=== PATIENT | female | born 1985 | race American Indian/Alaskan Native ===

== ENCOUNTER 2016-09-27 06:19 | Day surgery (SDC) | payer MEDICAID ==
--- NOTE | 2016-09-21 11:47 | Anesthesia Consultation ---
Anesthesia Consult and Med Hx Date of service: 09/21/16 - Airway Anesthetic Teeth Evaluation: Good ROM Head & Neck: Adequate Mental/Hyoid Distance: Adequate Mallampati Class: Class II Intubation Access Assessment: Probably Good - Pulmonary Exam CTA: Yes - Cardiac Exam Cardiac Exam: RRR - Pre-Operative Health Status ASA Pre-Surgery Classification: ASA2 Proposed Anesthetic Plan: General - Pulmonary Hx Smoking: Yes (occ. marijuana use) Hx Asthma: No Hx Respiratory Symptoms: No SOB: No COPD: No Hx Pneumonia: No Hx Sleep Apnea: No - Cardiovascular System Hx Hypertension: Yes (x 2 yrs) - Central Nervous System Hx Neuromuscular Disorder: No Hx Seizures: No CVA: No Hx Back Pain: Yes (lower, probably related to pelvic pain) Hx Psychiatric Problems: No - Gastrointestinal Hx Ulcer: No Hx Gastroesophageal Reflux Disease: No - Endocrine Hx Renal Disease: Yes (Patient has one kidney, no problems) Hx End Stage Renal Disease: No Hx Cirrhosis: No Hx Liver Disease: No Hx Insulin Dependent Diabetes: No Hx Non-Insulin Dependent Diabetes: No Hx Thyroid Disease: No Hx Hypothyroidism: No Hx Hyperthyroidism: No - Hematic Hx Anemia: No Hx Sickle Cell Disease: No - Other Systems Hx Alcohol Use: Yes (occas) Hx Substance Use: Yes (occ. marijuana in past) Hx Cancer: No Hx Obesity: Yes
--- NOTE | 2016-09-21 11:47 | Anesthesia Day of Surgery ---
Anesthesia Day of Surgery - Day of Surgery Patient Examined: Yes Patient H&P Reviewed: Yes Patient is NPO: Yes
[2016-09-21 12:28] LABS: Basophils % (Auto) 0.6 % (0.0-1.8); Eosinophils % (Auto) 1.2 % (0.0-4.3); Hematocrit 33.4 % (30.3-42.9); Hemoglobin 10.4 gm/dl (10.1-14.3); Mean Corpuscular HGB Conc 31 % (30-34); Mean Corpuscular Volume 78 fl (79-97); Platelet Count 272 K/mm3 (140-440); Red Cell Distribution Width 17.3 % (13.2-15.2); White Blood Count 8.8 K/mm3 (4.5-11.0)
[2016-09-21 12:38] LABS: Anion Gap 16 mmol/L; BUN/Creatinine Ratio 11.42; Blood Urea Nitrogen 8 mg/dL (7-17); Calcium 8.7 mg/dL (8.4-10.2); Carbon Dioxide 24 mmol/L (22-30); Chloride 102.9 mmol/L (98-107); Glucose 88 mg/dL (65-100); Potassium 3.8 mmol/L (3.6-5.0); Sodium 139 mmol/L (137-145)
[2016-09-21 12:44] LABS: Mean Corpuscular Hemoglobin 24 pg (28-32)
[2016-09-27] MEDS ORDERED: NACL 0.9% 1000 ML 1,000 ML IV SCH (07:00)
[2016-09-27] MEDS ORDERED: TRANSDERM-SCOP TD NR (07:00)
[2016-09-27] MEDS ORDERED: PEPCID PO NR (07:00)
[2016-09-27] MEDS ORDERED: VERSED IV NR (07:00)
[2016-09-27] MEDS ORDERED: ZEMURON IV ONE (07:17)
[2016-09-27] MEDS ORDERED: XYLOCAINE MPF 2% ONE (07:17)
[2016-09-27] MEDS ORDERED: DILAUDID ONE ×2 (07:18→09:05)
[2016-09-27] MEDS ORDERED: DIPRIVAN 10 MG/ML IV ONE (07:18)
--- NOTE | 2016-09-27 07:25 | Short Stay Summary ---
Short Stay Documentation Date of service: 09/27/16 Narrative H&P: 31y/o BF with a prolonged history of chronic pelvic pain and dyspareunia. Patient reports significant pain with her menses. She currently requires prescription narcotics for pain control. - History Principal diagnosis: chronic pelvic pain Past Medical History: hypertension Past Surgical History: Social history: single - Allergies and Medications Current Medications: Allergies No Known Allergies Allergy (Verified 09/21/16 12:05) Home Medications Medication Instructions Recorded Confirmed Last Taken Type HYDROcodone/APAP 10-325 [[place] 1 each PO Q6HR PRN #30 tablet 01/30/14 09/19/16 Unknown Rx 10/325] Hydrochlorothiazide [HCTZ] 25 mg PO QDAY PRN 09/19/16 09/19/16 Unknown History Active Medications Famotidine (Pepcid) 20 mg PO PREOP NR Stop: 09/27/16 23:00 Last Admin: 09/27/16 07:02 Dose: 20 mg Sodium Chloride (Nacl 0.9% 1000 Ml) 1,000 mls @ 100 mls/hr IV DIRECT IVAN Last Admin: 09/27/16 07:05 Dose: 100 mls/hr Midazolam HCl (Versed) 2 mg IV PREOP NR Stop: 09/27/16 23:00 Last Admin: 09/27/16 07:17 Dose: 2 mg Scopolamine (Transderm-Scop) 1 each TD PREOP NR Stop: 09/29/16 23:00 Last Admin: 09/27/16 07:00 Dose: 1 each - Physical exam General appearance: no acute distress Integumentary: no rash HEENT: Atraumatic Lungs: Clear to auscultation Breasts: deferred Heart: Regular rate Gastrointestinal: normal Female Genitourinary: deferred Rectal Exam: deferred - Brief post op/procedure progress note Date of procedure: 09/27/16 Pre-op diagnosis: chronic pelvic pain Post-op diagnosis: same Procedure: Laparoscopy Lysis of adhesions Right ovarian cystotomy Anesthesia: LEOBARDO Surgeon: CAROLINA VALENZUELA Estimated blood loss: minimal Pathology: none Condition: stable - Hospital course Hospital course: The patient was admitted that he is surgery and underwent a laparoscopy. Please see operative note for details of surgery. Her postoperative course was uneventful. - Disposition Condition at discharge: Good Disposition: DC-01 TO HOME OR SELFCARE Short Stay Discharge Plan Activity: other (request for 2 weeks) Diet: regular Additional Instructions: Follow-up with Dr. Ren in 4 weeks Patient may return to work in 2 weeks Prescriptions: Oxycodone HCl/Acetaminophen [Percocet 10/325 mg] 1 each PO Q6HR PRN #60 tablet PRN Reason: Pain traMADol [Ultram 50 MG tab] 50 mg PO Q6HR PRN #30 tablet PRN Reason: Pain
[2016-09-27] MEDS ORDERED: MARCAINE 0.5% INFILTRATI ONE ×2 (07:27→08:15)
[2016-09-27] MEDS ORDERED: DECADRON ONE (08:00)
[2016-09-27] MEDS ORDERED: ZOFRAN ONE (08:00)
[2016-09-27] MEDS ORDERED: NACL 0.9% IR ONE (08:15)
[2016-09-27] MEDS ORDERED: NACL 0.9% 1000 ML 1,000 ML ONE (08:38)
--- NOTE | 2016-09-27 08:46 | Operative Report ---
Operative Report Operative Report: Date of procedure: 09/27/2016 Pre-operative diagnosis: Chronic pelvic pain Post-operative diagnosis: Same as above; pelvic adhesive disease Procedure name(s): Laparoscopy; lysis of adhesions; right ovarian cystotomy Surgeon: Radha Carbone M.D. Pole Framer: None Estimated blood loss: Minimal Anesthesia: Gen. endotracheal anesthesia Findings Operative findings included pelvic adhesive disease of the uterus adherent to the anterior abdominal wall. There were also findings of a small right ovarian cyst with evidence of clear kate fluid. Indication: 31-year-old black female with a history of worsening chronic pelvic pain. The patient has elected for operative management Procedure The patient was taken to the operating room and given general endotracheal anesthesia without complication. The patient was prepped and draped in a normal sterile fashion. A bivalve speculum was placed in the patient's vagina single-tooth tenaculum placed on the anterior lip of the cervix. A uterine manipulator was then placed. The bivalve speculum was then removed. Attention was then turned to the patient's abdomen where a 5 mm infraumbilical skin incision was then made. Peritoneal entry was verified with a water-filled syringe. Insufflation of the peritoneal cavity was performed with CO2 gas. A 5 mm trocar was then placed through the infraumbilical incision and a 5 mm laparoscope was then inserted. General survey of the patient's abdomen and pelvis revealed anterior uterine adhesions to the anterior abdominal wall. The patient also had findings of omental adhesions to the anterior abdominal wall. There were findings of a right ovarian cyst. A left lateral 5 mm skin incision was then made and under direct visualization a 5 mm trocar was then placed. The monopolar scissors were then inserted through the trocar. The anterior uterine adhesions were lysed with the monopolar scissors. There was no evidence of endometriotic implants. The right ovary was elevated and a cystotomy was performed with the monopolar scissors with evacuation of clear fluid. No significant posterior adhesions were noted. The 5 mm trocar was then removed under direct visualization. The pneumoperitoneum was then released. The infraumbilical trocar and laparoscope with them also removed. The skin incisions were then closed with 4-0 Monocryl and injected with quarter percent Marcaine. The vaginal estrogen were removed atraumatically. The patient was then successfully extubated and taken to the recovery room in stable condition. All sponge laps and needle counts were correct 2.
[2016-09-27] MEDS ORDERED: APRESOLINE ONE (09:05)
[2016-09-27] MEDS: DILAUDID IV PRN ×2 (09:10→09:20)
[2016-09-27] MEDS ORDERED: PERCOCET 5/325 ONE (09:40)
[2016-09-27] MEDS ORDERED: APRESOLINE IV PRN (10:00)
[2016-09-27] MEDS ORDERED: PERCOCET 5/325 PO PRN (10:00)
[2016-09-27] MEDS ORDERED: ZOFRAN IV ONE (10:58)
[2016-09-27 12:53] VITALS: BP 131/73
== END 2016-09-27 12:15 | disposition home or self-care (01) ==
LOC: OR 06:19
PROVIDERS: ATTEND Obstetrics & Gynecology
DX: N83.201 Unspecified ovarian cyst, right side (principal); N73.6 Female pelvic peritoneal adhesions (postinfective); I10 Essential (primary) hypertension; F12.21 Cannabis dependence, in remission; E66.9 Obesity, unspecified; Z68.41 Body mass index [BMI] 40.0-44.9, adult; Z98.890 Other specified postprocedural states; Z79.899 Other long term (current) drug therapy; Z87.891 Personal history of nicotine dependence; Z72.89 Other problems related to lifestyle
CPT/HCPCS: 36415; 49322; 80048; 84703; 85025; J0360; J1100; J1170; J2250; J2405; J2704; J7030

== ENCOUNTER 2017-02-12 09:47 | Outpatient (CLI) | payer MEDICAID ==
--- NOTE | 2017-02-12 14:17 | Ultrasound Report ---
ULTRASOUND ABDOMEN LIMITED: 02/12/17 10:04:00 CLINICAL: A ventral hernia. FINDINGS: Ultrasound examination of the anterior abdominal wall demonstrated a 1 cm defect in the midline inferior to the umbilicus. There is a slight bulge of fat through the defect with a Valsalva maneuver. No bowel extends into the defect. IMPRESSION: Infraumbilical midline ventral hernia with a 1 cm fascial defect.
== END 2017-02-12 09:48 | disposition home or self-care (01) ==
LOC: US 09:47
PROVIDERS: ATTEND Obstetrics & Gynecology
DX: K43.9 Ventral hernia without obstruction or gangrene (principal)
CPT/HCPCS: 76705

== ENCOUNTER 2017-04-27 10:12 | Day surgery (SDC) | payer MEDICAID ==
[2017-04-27] MEDS ORDERED: NACL BACTERIOSTATIC INFILTRATI ONE (10:28)
--- NOTE | 2017-04-27 10:37 | Anesthesia Consultation ---
Anesthesia Consult and Med Hx Date of service: 04/27/17 - Airway Anesthetic Teeth Evaluation: Chipped (right incisot) ROM Head & Neck: Adequate Mental/Hyoid Distance: Adequate Mallampati Class: Class II Intubation Access Assessment: Probably Good - Pulmonary Exam CTA: Yes - Cardiac Exam Cardiac Exam: RRR - Pre-Operative Health Status ASA Pre-Surgery Classification: ASA2 Proposed Anesthetic Plan: General - Pulmonary Hx Smoking: Yes (occ. marijuana use) Hx Asthma: No Hx Respiratory Symptoms: No SOB: No COPD: No Hx Pneumonia: No Hx Sleep Apnea: No - Cardiovascular System Hx Hypertension: Yes (x 2 yrs) - Central Nervous System Hx Neuromuscular Disorder: No Hx Seizures: No CVA: No Hx Back Pain: Yes (lower, probably related to pelvic pain) Hx Psychiatric Problems: No - Gastrointestinal Hx Ulcer: No Hx Gastroesophageal Reflux Disease: No - Endocrine Hx Renal Disease: Yes (Patient has one kidney, no problems) Hx End Stage Renal Disease: No Hx Cirrhosis: No Hx Liver Disease: No Hx Insulin Dependent Diabetes: No Hx Non-Insulin Dependent Diabetes: No Hx Thyroid Disease: No Hx Hypothyroidism: No Hx Hyperthyroidism: No - Hematic Hx Anemia: No Hx Sickle Cell Disease: No - Other Systems Hx Alcohol Use: Yes (occas) Hx Substance Use: Yes (occ. marijuana in past) Hx Cancer: No Hx Obesity: Yes
--- NOTE | 2017-04-27 10:42 | Anesthesia Day of Surgery ---
Anesthesia Day of Surgery - Day of Surgery Patient Examined: Yes Patient H&P Reviewed: Yes Patient is NPO: Yes Beta Blockers: Yes Cardiac Clearance: Yes Pulmonary Clearance: Yes Pa's Test: N/A
[2017-04-27] MEDS ORDERED: ZOFRAN IV PRN (10:44)
[2017-04-27] MEDS ORDERED: LACTATED RINGERS 1,000 ML IV SCH ×2 (11:00)
[2017-04-27] MEDS ORDERED: PEPCID PO NR (11:00)
[2017-04-27] MEDS ORDERED: VERSED IV NR (11:00)
[2017-04-27] MEDS ORDERED: ANCEF/STERILE WATER 2 GM/20 ML IV NR (11:00)
[2017-04-27 11:32] LABS: Hematocrit 32.7 % (30.3-42.9); Hemoglobin 10.3 gm/dl (10.1-14.3); Mean Corpuscular HGB Conc 32 % (30-34); Mean Corpuscular Volume 76 fl (79-97); Platelet Count 326 K/mm3 (140-440); Red Blood Count 4.31 M/mm3 (3.65-5.03); Red Cell Distribution Width 17.5 % (13.2-15.2)
[2017-04-27 11:49] LABS: Mean Corpuscular Hemoglobin 24 pg (28-32)
[2017-04-27 11:52] LABS: Alanine Aminotransferase 7 units/L (7-56); Albumin 4.3 g/dL (3.9-5); BUN/Creatinine Ratio 20; Blood Urea Nitrogen 12 mg/dL (7-17); Calcium 8.9 mg/dL (8.4-10.2); Hemolysis Index 2
[2017-04-27] MEDS ORDERED: MARCAINE 0.5% 30 ML INFILTRATI ONE (12:00)
[2017-04-27 12:10] LABS: Basophils # (Auto) 0.1 K/mm3 (0.0-0.1); Eosinophils # (Auto) 0.1 K/mm3 (0.0-0.4); Monocytes # (Auto) 0.5 K/mm3 (0.0-0.8)
[2017-04-27 12:14] LABS: Basophils % (Auto) 0.7 % (0.0-1.8); Lymphocytes # (Auto) 1.6 K/mm3 (1.2-5.4)
[2017-04-27] MEDS ORDERED: SUBLIMAZE ONE ×2 (12:23→13:55)
[2017-04-27] MEDS ORDERED: DIPRIVAN 10 MG/ML IV ONE (12:23)
[2017-04-27] MEDS ORDERED: VERSED ONE (12:27)
[2017-04-27] MEDS ORDERED: MARCAINE 0.5% INFILTRATI ONE (12:56)
[2017-04-27] MEDS ORDERED: NACL 0.9% IR ONE (12:56)
[2017-04-27] MEDS ORDERED: QUELICIN ONE (13:31)
[2017-04-27] MEDS ORDERED: ROBINUL ONE (13:31)
[2017-04-27] MEDS ORDERED: DECADRON ONE (13:31)
[2017-04-27] MEDS ORDERED: ZOFRAN ONE (13:31)
[2017-04-27] MEDS ORDERED: ZEMURON IV ONE (13:31)
[2017-04-27] MEDS ORDERED: NORMODYNE IV ONE (13:31)
[2017-04-27] MEDS ORDERED: LACTATED RINGERS 1,000 ML ONE (13:31)
[2017-04-27] MEDS ORDERED: XYLOCAINE MPF 2% ONE (13:31)
[2017-04-27] MEDS ORDERED: NEOSTIGMINE ONE (13:31)
--- NOTE | 2017-04-27 13:53 | Discharge Summary ---
Short Stay Discharge Plan Activity: advance as tolerated Diet: regular Wound: per your surgeon's advice Follow up with: JORGE GUTIÉRREZ MD [Primary Care Provider] - 7 Days
--- NOTE | 2017-04-27 14:14 | Post Anesthesia Evaluation ---
- Post Anesthesia Evaluation Patient Participated: Yes Airway Patent: Yes Stable Respiratory Function: Yes Nausea/Vomiting: No Temp > 96.8F: Yes Pain Manageable: Yes Adequeate Hydration: Yes Anesthesia Complications: No Block Receding Appropriately: Not Applicable Patient on Ventilator: No
[2017-04-27] MEDS: SUBLIMAZE IV PRN ×8 (14:15→15:10)
[2017-04-27] MEDS ORDERED: TORADOL IV ONE (14:15)
[2017-04-27] MEDS ORDERED: PERCOCET 5/325 PO PRN (15:24)
[2017-04-27 16:27] VITALS: BP 135/90
--- NOTE | 2017-04-27 23:56 | Operative Report ---
PREOPERATIVE DIAGNOSIS: Umbilical hernia status post section. POSTOPERATIVE DIAGNOSES: Umbilical hernia status post section; incarcerated omentum. SURGERY: Laparoscopic repair of umbilical hernia with application of Ventralex graft medium sized and removal of incarcerated omentum. FINDINGS: The patient had incarcerated omentum within the hernia sac that could be seen. We took picture of that, we noted some inflammatory changes in the pelvic area. The uterus looks large to me. I was able to see both ovaries. There is evidence of tubal ligation in the past. ANESTHESIA: General. BLOOD LOSS: Minimal. DESCRIPTION OF PROCEDURE: With the patient in supine position, under anesthesia, I prepped and draped in usual fashion. I made an incision in the right mid upper abdomen with the Veress needle. I was able to do CO2 of pressure 15 for which #5 trocar was inserted. With the use of the camera #5, I was able to introduce another trocar #5 in the ( ) lower quadrants under local anesthesia. Then, I evaluated the situation, a fairly good sized portion of the omentum was stuck within the hernia sac. I tried to mobilize that and see it to no avail, so I had to cut through it using a caudal cautery and EndoShears. At that point, I evaluated the area again, nothing specific was found. Then, an incision was performed at the lower aspect of the umbilicus, at which point I was able to reduce my finger within the defect itself; it is about 1.5 cm. So, I was able to remove all the incarcerated omentum within the wound itself and then a medium size Ventralex graft was inserted and then it was tacked all around using 2 rows of tackers. I was very much satisfied with good hemostasis. I did leave a piece of Interceed just at the lower aspect of the graft itself. I removed all the trocars, sustaining no bleeding from the insertion sites. Then, the fascia was closed with use of 0 Vicryl [id number] x2 and the skins with subcuticular stitch of 4-0 Vicryl and bandages. We are going to apply an abdominal binder on the patient. I did indicate to her preop that she looks pale to me and her hemoglobin was in the range of about 10.5. I asked her to get from the pharmacy multivitamins with iron to be taken 1 every day for 2 months. JOB# [id number] GIANCARLO/HODAN
--- NOTE | 2017-04-28 00:27 | Discharge Summary ---
FINAL DIAGNOSIS: Incarcerated umbilical hernia with omentum. HOSPITAL COURSE: This patient was seen in my office about a few weeks ago because of pain in the area. She was referred to me by Dr. Carbone, who noticed a hernia there and thus she came. She is a healthy young black female. She looked a little bit pale. Her hemoglobin was in the range of about 10.5. So, she presented for definitive surgical intervention, where under general anesthesia, laparoscopic repair of umbilical hernia with incarceration, the omentum that was incarcerated was removed. Postop, she did well. She was transferred to the recovery room in good condition. I wrote to her a prescription for Percocet 1 every 4 hours p.r.n. for pain. No driving, no pushing, no pulling. To take multivitamins with iron. To see me in about 2 weeks. JOB# [id number] GIANCARLO/HODAN
== END 2017-04-27 16:45 | disposition home or self-care (01) ==
LOC: OR 10:12
PROVIDERS: ATTEND Surgery
DX: K42.0 Umbilical hernia with obstruction, without gangrene (principal); N73.8 Other specified female pelvic inflammatory diseases; I10 Essential (primary) hypertension; E66.9 Obesity, unspecified; Z68.38 Body mass index [BMI] 38.0-38.9, adult; Z87.891 Personal history of nicotine dependence; Z98.51 Tubal ligation status; Z98.890 Other specified postprocedural states
CPT/HCPCS: 36415; 49653; 80053; 81025; 85007; 85025; 88302; C1765; C1781; J0330; J0690; J1100; J1885; J2250; J2405; J2704; J2710; J3010; J7120

== ENCOUNTER 2018-05-23 07:49 | Day surgery (SDC) | payer MEDICAID ==
[~2018-05-23 07:49] MED LIST: ceFAZolin 2 GM in NACL 0.9% 100 ML IV ONE
[2018-05-23] MEDS ORDERED: ANCEF/STERILE WATER 2 GM/20 ML 2 GM/20 ML SYRINGE IV NR (09:30)
[2018-05-23] MEDS ORDERED: NACL BACTERIOSTATIC INFILTRATI ONE (09:37)
[2018-05-23 09:53] LABS: Bilirubin,Urine NEG (Negative); Blood,Urine NEG (Negative); Color,Urine Yellow (Yellow); Mucus,Urine FEW /HPF; Protein,Urine <15 mg/dL mg/dL (Negative); RBC,Urine < 1.0 /HPF (0.0-6.0)
[2018-05-23] MEDS ORDERED: NEURONTIN PO NR (10:00)
[2018-05-23] MEDS ORDERED: TRANSDERM-SCOP TD NR (10:00)
[2018-05-23] MEDS ORDERED: VERSED IV NR (10:00)
[2018-05-23] MEDS ORDERED: LACTATED RINGERS 1,000 ML IV SCH (10:00)
--- NOTE | 2018-05-23 10:09 | Anesthesia Consultation ---
Anesthesia Consult and Med Hx Date of service: 05/23/18 - Airway Anesthetic Teeth Evaluation: Good ROM Head & Neck: Adequate Mental/Hyoid Distance: Adequate Mallampati Class: Class II Intubation Access Assessment: Probably Good - Pulmonary Exam CTA: Yes - Cardiac Exam Cardiac Exam: RRR - Pre-Operative Health Status ASA Pre-Surgery Classification: ASA3 Proposed Anesthetic Plan: General Nerve Block: TAP - Pulmonary Hx Smoking: Yes (occ. marijuana use) Hx Asthma: No Hx Respiratory Symptoms: No COPD: No Hx Sleep Apnea: No - Cardiovascular System Hx Hypertension: Yes (no antihypertensives today) Hx Heart Attack/AMI: No Hx Percutaneous Transluminal Coronary Angioplasty (PTCA): No Hx Cardia Arrhythmia: No - Central Nervous System Hx Seizures: No CVA: No Hx Back Pain: Yes (chronic back and pelvic pain on chronic opioids; daily MME 45) Hx Psychiatric Problems: Yes (anxiety/depression; last dose xanax this morning) - Gastrointestinal Hx Gastroesophageal Reflux Disease: No - Endocrine Hx Renal Disease: No (born with one kidney) Hx Liver Disease: No Hx Insulin Dependent Diabetes: No Hx Non-Insulin Dependent Diabetes: No Hx Thyroid Disease: No - Other Systems Hx Alcohol Use: Yes (OCCA) Hx Substance Use: Yes (MARIJUANA) Hx Cancer: No Hx Obesity: Yes - Additional Comments Anesthesia Medical History Comments: Hx PONV with prior anesthetics. Complains of urinary frequency, urgency, and back pain which she believes may be due to UTI (has had multiple in the past). No fevers, chills, or HD signs of sepsis. UA today not consistent with infection. Surgeon notified. Consented for preop TAP block.
--- NOTE | 2018-05-23 10:09 | Anesthesia Day of Surgery ---
Anesthesia Day of Surgery - Day of Surgery Patient Examined: Yes Patient H&P Reviewed: Yes Patient is NPO: Yes
[2018-05-23] MEDS ORDERED: MARCAINE 0.25% INFILTRATI ONE (10:23)
[2018-05-23] MEDS ORDERED: DECADRON ONE ×2 (10:23→10:31)
[2018-05-23] MEDS ORDERED: SUBLIMAZE ONE (10:28)
[2018-05-23] MEDS ORDERED: XYLOCAINE MPF 2% ONE (10:29)
[2018-05-23] MEDS ORDERED: DIPRIVAN 10 MG/ML IV ONE (10:29)
[2018-05-23] MEDS ORDERED: ZEMURON IV ONE (10:29)
[2018-05-23] MEDS ORDERED: SUBLIMAZE IV NR (10:30)
[2018-05-23] MEDS ORDERED: ZOFRAN ONE (10:31)
[2018-05-23] MEDS ORDERED: MARCAINE 0.5% INFILTRATI ONE ×2 (10:36→13:17)
[2018-05-23] MEDS ORDERED: XYLOCAINE 1% 20 mL ONE (10:36)
[2018-05-23] MEDS ORDERED: KETALAR ONE (11:35)
[2018-05-23] MEDS ORDERED: DILAUDID ONE (13:05)
[2018-05-23] MEDS ORDERED: BLOXIVERZ ONE (13:15)
[2018-05-23] MEDS ORDERED: TORADOL ONE (13:15)
[2018-05-23] MEDS ORDERED: ROBINUL ONE (13:16)
[2018-05-23] MEDS ORDERED: NACL 0.9% IR ONE (13:16)
[2018-05-23] MEDS ORDERED: XYLOCAINE 1% 20 mL INFILTRATI ONE (13:17)
--- NOTE | 2018-05-23 13:23 | Short Stay Summary ---
Short Stay Documentation Date of service: 05/23/18 - History Principal diagnosis: chronic abdominal pain, possible hernia H&P: obtained from office - Allergies and Medications Current Medications: Allergies No Known Allergies Allergy (Verified 05/22/18 10:54) Home Medications Medication Instructions Recorded Confirmed Last Taken Type HYDROcodone/APAP 5-325 [[place] 1 each PO Q6H PRN 04/27/17 05/23/18 05/23/18 05:00 History 5/325] hydroCHLOROthiazide [HCTZ] 25 mg PO DAILY PRN 04/27/17 05/23/18 05/16/18 History ALPRAZolam [Xanax TAB] 1 mg PO DAILY PRN 05/22/18 05/23/18 05/23/18 05:00 Hist ory Active Medications Celecoxib (Celebrex) 200 mg PO PREOP NR Stop: 05/23/18 16:00 Last Admin: 05/23/18 10:27 Dose: 200 mg Documented by: Fentanyl (Sublimaze) 100 mcg IV ONCE NR Stop: 05/23/18 16:00 Last Admin: 05/23/18 10:26 Dose: 100 mcg Documented by: Gabapentin (Neurontin) 300 mg PO PREOP NR Stop: 05/23/18 16:00 Last Admin: 05/23/18 10:27 Dose: 300 mg Documented by: Hydromorphone HCl (Dilaudid) 0.5 mg IV Q10MIN PRN PRN Reason: Pain , Severe (7-10) Stop: 05/23/18 18:00 Cefazolin Sodium (Ancef/Sterile Water 2 Gm/20 Ml) 2 gm in 20 mls @ 80 mls/hr IV PREOP NR Stop: 05/23/18 19:00 Lactated Ringer's (Lactated Ringers) 1,000 mls @ 100 mls/hr IV DIRECT IVAN Last Admin: 05/23/18 10:28 Dose: 100 mls/hr Documented by: Midazolam HCl (Versed) 2 mg IV PREOP NR Stop: 05/23/18 23:59 Last Admin: 05/23/18 10:28 Dose: 2 mg Documented by: Scopolamine (Transderm-Scop) 1 each TD PREOP NR Stop: 05/23/18 16:00 Last Admin: 05/23/18 10:29 Dose: 1 each Documented by: - Brief post op/procedure progress note Date of procedure: 05/23/18 Pre-op diagnosis: chronic abdominal pain, possible hernia Post-op diagnosis: other (recurrent umbilical hernia) Procedure: robotic assisted diagnostic laparoscopy, lysis of adhesions, repair of recurrent umbilical hernia with mesh Anesthesia: GETA, other (LEATHA block) Findings: adhesions from the omentum to old hernia mesh at prior umbilical hernia repair. 1 cm recurrence of umbilical hernia at right lateral aspect of the mesh with a small amount of incarcerated omentum. No adhesions in the pelvis. Enlarged appearing uterus with multiple cysts Surgeon: BETTY SMALL Splitter Machine: JEY MAJOR Estimated blood loss: minimal Pathology: none Condition: stable - Hospital course Hospital course: Pt was observed in the PACU and discharged to home in stable condition when criteria was met - Disposition Condition at discharge: Good Disposition: DC-01 TO HOME OR SELFCARE Short Stay Discharge Plan Activity: other (no heavy lifting or driving when taking prescription pain medications) Diet: regular Wound: open to air Additional Instructions: SEE PRINTED DISCHARGE INSTRUCTIONS Follow up with: DEEDEE KELLY MD [Primary Care Provider] - 7 Days BETTY SMALL DO [Staff Physician] - 14 Days Prescriptions: oxyCODONE /ACETAMINOPHEN [Percocet 5/325] 1 tab PO Q4HR PRN #30 tab PRN Reason: Pain , Severe (7-10)
[2018-05-23] MEDS ORDERED: NORMODYNE IV PRN (13:35)
[2018-05-23] MEDS: DILAUDID IV PRN ×2 (13:57→14:10)
[2018-05-23] MEDS ORDERED: PERCOCET 5/325 PO PRN (14:12)
--- NOTE | 2018-05-23 14:39 | Post Anesthesia Evaluation ---
- Post Anesthesia Evaluation Patient Participated: Yes Airway Patent: Yes Stable Respiratory Function: Yes Nausea/Vomiting: No Temp > 96.8F: Yes Pain Manageable: Yes Adequeate Hydration: Yes Anesthesia Complications: No
[2018-05-23 16:05] VITALS: BP 123/67
--- NOTE | 2018-05-23 16:50 | Operative Report ---
PREOPERATIVE DIAGNOSES: Chronic abdominal pain, possible hernia. POSTOPERATIVE DIAGNOSES: Recurrent umbilical hernia and adhesive disease. PROCEDURES: Robotic-assisted diagnostic laparoscopy, lysis of adhesions, repair of recurrent umbilical hernia with mesh. ANESTHESIA: General endotracheal anesthesia, TAP block. FINDINGS: 1. Adhesions from the omentum to the old hernia mesh at prior umbilical hernia repair. 2. A 1 cm recurrence of the umbilical hernia at the right lateral aspect of the mesh with a small amount of incarcerated omentum. 3. No adhesions in the pelvis. 4. Enlarged appearing uterus with multiple fibroids. SURGEON: Hortensia Bazzi DO. CIVIL ENGINEER: Devendra Gifford M.D. ESTIMATED BLOOD LOSS: Minimal. PATHOLOGY: None. CONDITION: Stable to PACU. HISTORY OF PRESENT ILLNESS AND INDICATION: The patient is a 32-year-old female who was referred to the surgery office for complaints of chronic abdominal pain. The patient had a history of 4 C-sections, laparoscopic tubal ligation, and laparoscopic umbilical hernia repair with mesh in the past. She continues to complain of lower abdominal pain near her incision, which was felt to be possibly caused by adhesive disease. I discussed all management options with the patient including surgical management. We discussed a diagnostic laparoscopy, possible lysis of adhesions and possible repair of the hernia with mesh. I discussed all risks, benefits and alternatives of surgery with the patient. We discussed robotic, laparoscopic, and open approaches. I also explained to her that it is possible that even after this surgery and lysis of adhesions that her pain may still persist. She understands and all questions were answered. Consent was obtained in the office. PROCEDURE IN DETAIL: The patient was identified in the preoperative area, taken back to the operating room, and placed on operating table in supine position. After anesthesia was induced, a Christy catheter was sterilely placed by the circulating nurse. Bilateral arms were tucked with all bony prominences padded appropriately. The abdomen was then prepped and draped in the usual sterile fashion. A time-out performed. A left upper quadrant long incision was made at Lockwood's point using the 11 blade through which a Veress needle was inserted. The Veress needle position was confirmed using the saline drop test and the abdomen insufflated to 15 mmHg. Once the abdomen was insufflated, the Veress needle was removed and the incision extended and a 5 mm Optiview trocar was placed through this incision. The abdomen was inspected. There was no underlying injury to any of the abdominal contents. Immediately, we were able to see adhesions from the omentum to the anterior abdominal wall at the area of prior umbilical hernia repair. The entire mesh was obscured with adhesions. The pelvis did not show any evidence of adhesions. The uterus was visualized and showed multiple small fibroids. The uterus was also enlarged. There was evidence of clip on the right fallopian tube. Left fallopian tube was not visualized. At this point, we continued by placing a 12 mm subxiphoid trocar and a right upper quadrant 8 mm robotic trocar under direct visualization. The 5 mm left upper quadrant trocar was removed and were replaced with an 8 mm robotic trocar under direct visualization. The robot was then docked and a fenestrated bipolar grasper placed in arm #2 and a monopolar scissor placed in arm #1. The camera was inserted and the instruments were advanced under direct visualization. The surgeon was then transferred to the console. An adhesiolysis was then undertaken using the monopolar scissors. Once all of the omentum was dissected off of the old mesh, it was examined for hemostasis, which was carefully achieved. The omentum did form a large loop with a hole in it and therefore was ligated and transected in order to prevent internal hernia from forming. The prior hernia mesh was then examined and there was a very small 1 cm recurrence of the umbilical hernia at the right lateral aspect of the mesh. There was some incarcerated omentum, which was dissected free. The pelvis was once again examined. There were no adhesions seen in the pelvis. The right upper quadrant and left upper quadrant were also examined. There were no adhesions here as well. The other intra-abdominal organs were unremarkable. At this point, the decision was made to fix the hernia. An [address] mesh was inserted through the 12 mm port along with suture material. The center of the mesh was placed at the center of the hernia defect and sutured into place circumferentially using a 2-0 V-Loc suture. There was good coverage and the mesh was seen to lay flat with coated surface facing the bowel. The 12 mm port was then removed and the fascia closed with 0 Vicryl interrupted suture using Justin-Dawit device. The abdomen was once again inspected for hemostasis, which was carefully ensured. The 8 mm robotic trocars were removed under direct visualization and the abdomen desufflated. Skin incisions were closed with 4-0 Monocryl subcuticular stitches and skin glue. At the end of the case, all sponge, instrument, sharp counts were correct x 2. The Christy catheter was removed. The patient was awoken from anesthesia, extubated and the patient was taken to PACU in stable condition. JOB# [id number] PRISCILA/HODAN CURIEL
== END 2018-05-23 16:15 | disposition home or self-care (01) ==
LOC: OR 07:49
PROVIDERS: ATTEND Surgery
DX: K42.0 Umbilical hernia with obstruction, without gangrene (principal); G89.29 Other chronic pain; G43.909 Migraine, unspecified, not intractable, without status migrainosus; I10 Essential (primary) hypertension; F32.9 Major depressive disorder, single episode, unspecified; F41.9 Anxiety disorder, unspecified; E66.9 Obesity, unspecified; Z68.38 Body mass index [BMI] 38.0-38.9, adult; Z98.890 Other specified postprocedural states; Z80.8 Family history of malignant neoplasm of other organs or systems; Z72.89 Other problems related to lifestyle; Z98.51 Tubal ligation status; Z98.891 History of uterine scar from previous surgery; Z79.899 Other long term (current) drug therapy; Z80.42 Family history of malignant neoplasm of prostate
CPT/HCPCS: 49653; 64450; 81001; 81025; A4217; C1781; J0690; J1100; J1170; J1885; J2250; J2405; J2704; J2710; J3010; J7120; S2900

== ENCOUNTER 2019-08-13 15:23 | Observation (INO) | payer MEDICAID ==
[2019-08-11 09:52] LABS: Basophils # (Auto) 0.1 K/mm3 (0.0-0.1); Basophils % (Auto) 0.7 % (0.0-1.8); Eosinophils # (Auto) 0.1 K/mm3 (0.0-0.4); Eosinophils % (Auto) 0.8 % (0.0-4.3); Hematocrit 31.7 % (30.3-42.9); Hemoglobin 10.3 gm/dl (10.1-14.3); Lymphocytes # (Auto) 1.4 K/mm3 (1.2-5.4); Lymphocytes % (Auto) 18.5 % (13.4-35.0); Mean Corpuscular HGB Conc 32 % (30-34); Mean Corpuscular Volume 77 fl (79-97); Monocytes # (Auto) 0.4 K/mm3 (0.0-0.8); Monocytes % (Auto) 5.1 % (0.0-7.3); Platelet Count 357 K/mm3 (140-440); Red Blood Count 4.14 M/mm3 (3.65-5.03); Red Cell Distribution Width 17.1 % (13.2-15.2)
--- NOTE | 2019-08-11 10:17 | Anesthesia Consultation ---
Anesthesia Consult and Med Hx Date of service: 08/13/19 - Airway Anesthetic Teeth Evaluation: Good, Crowns ROM Head & Neck: Adequate Mental/Hyoid Distance: Adequate Mallampati Class: Class II Intubation Access Assessment: Good - Pre-Operative Health Status ASA Pre-Surgery Classification: ASA2 Proposed Anesthetic Plan: General Nerve Block: TAP - Pulmonary Hx Smoking: Yes (occ. marijuana use) Hx Asthma: No Hx Respiratory Symptoms: No SOB: No COPD: No Hx Pneumonia: No Hx Sleep Apnea: No - Cardiovascular System Hx Hypertension: Yes (Past hx, no longer treated. BP 155/103) Hx Heart Attack/AMI: No Hx Percutaneous Transluminal Coronary Angioplasty (PTCA): No Hx Cardia Arrhythmia: No (Palpitations) - Central Nervous System Hx Neuromuscular Disorder: No Hx Seizures: No CVA: No Hx Back Pain: Yes (chronic back and pelvic pain on chronic opioids; daily MME 45) Hx Psychiatric Problems: Yes (Anxiety) - Gastrointestinal Hx Ulcer: No Hx Gastroesophageal Reflux Disease: No - Endocrine Hx Renal Disease: No (born with one kidney) Hx End Stage Renal Disease: No Hx Cirrhosis: No Hx Liver Disease: No Hx Insulin Dependent Diabetes: No Hx Non-Insulin Dependent Diabetes: No Hx Thyroid Disease: No Hx Hypothyroidism: No Hx Hyperthyroidism: No - Hematic Hx Anemia: No Hx Sickle Cell Disease: No - Other Systems Hx Alcohol Use: Yes (Occas) Hx Substance Use: Yes (MARIJUANA) Hx Cancer: No Hx Obesity: Yes - Additional Comments Anesthesia Medical History Comments: PONV. Hard to wake up
--- NOTE | 2019-08-13 07:19 | History and Physical Report ---
History of Present Illness Date of examination: 08/13/19 Date of admission: August 13, 2019 Chief complaint: Chronic pelvic pain History of present illness: 34-year-old -0-1-4 with a history of chronic pelvic pain. The patient has a history of 4 prior deliveries and has had laparoscopic evidence of pelvic adhesive disease. She underwent lysis of adhesions in the past with temporary improvement in symptoms. She reports that her symptoms are worsening and has elected to undergo definitive surgical management. Past History Past Medical History: other (Renal agenesis) Past Surgical History: section, other (Laparoscopy; bilateral tubal ligation) Social history: - Obstetrical History : 5 Para: 4 Hx # Term Pregnancies: 4 Number of Pregnancies: 0 Spontaneous Abortions: 1 Induced : 0 Number of Living Children: 4 Medications and Allergies Allergies Allergy/AdvReac Type Severity Reaction Status Date / Time No Known Allergies Allergy Verified 08/07/19 15:20 Home Medications Medication Instructions Recorded Confirmed Last Taken Type oxyCODONE /ACETAMINOPHEN [Percocet 1 tab PO Q4HR PRN #30 tab 05/23/18 08/07/19 Unknown Rx 5/325] Ibuprofen [Motrin] 800 mg PO Q8HR PRN 08/07/19 08/07/19 Unknown History Active Meds: Active Medications Celecoxib (Celebrex) 400 mg PO PREOP NR Stop: 08/13/19 23:00 Gabapentin (Gabapentin) 300 mg PO PREOP NR Stop: 08/13/19 23:00 Lactated Ringer's (Lactated Ringers) 1,000 mls @ 125 mls/hr IV DIRECT IVAN Midazolam HCl (Versed) 2 mg IV PREOP NR Stop: 08/13/19 23:59 Review of Systems All systems: negative Genitourinary: pelvic pain - Vital Signs Vital signs: Vital Signs Temp Pulse Resp BP Pulse Ox 98.9 F 78 20 155/103 100 08/11/19 09:30 08/11/19 09:30 08/11/19 09:30 08/11/19 09:30 08/11/19 09:30 Temp Pulse Resp BP Pulse Ox 98.9 F 78 20 155/103 100 08/11/19 09:30 08/11/19 09:30 08/11/19 09:30 08/11/19 09:30 08/11/19 09:30 - Physical Exam Breasts: Positive: deferred Cardiovascular: Regular rate Lungs: Positive: Clear to auscultation Results Result Diagrams: 08/11/19 09:30 All other labs normal. Assessment and Plan - Patient Problems (1) Pelvic adhesive disease Status: Acute Plan to address problem: Schedule to proceed with a robotic hysterectomy and bilateral salpingectomy (2) Chronic pelvic pain in female Status: Acute
--- NOTE | 2019-08-13 08:45 | Anesthesia Day of Surgery ---
Anesthesia Day of Surgery - Day of Surgery Patient Examined: Yes Patient H&P Reviewed: Yes Patient is NPO: Yes
[2019-08-13] MEDS: MIDAZOLAM 2 MG/2 ML INJ IV NR ×3 (09:59→10:17)
--- NOTE | 2019-08-13 14:52 | Operative Report ---
Operative Report Operative Report: Date of surgery: August 13, 2019 Preoperative diagnoses: Chronic pelvic pain; pelvic adhesive disease Postoperative diagnoses: Same as above Procedure: Robotic hysterectomy; bilateral salpingectomy; lysis of adhesions; cystotomy repair Surgeon: Radha Carbone M.D. Blood Bank Supervisor: Rosi Nino Anesthesia: Gen. endotracheal anesthesia Estimated blood loss: 75 mL Complication: Incidental cystotomy during lysis of adhesions Pathology: Uterus, cervix, bilateral tubes Indication: 34-year-old -0-1-4 with a history of chronic pelvic pain and a known history of pelvic adhesive disease. The patient has a history of 4 prior deliveries. Procedure: The patient was taken to the operating room and given general endotracheal anesthesia without complication. She is prepped and draped in a normal sterile fashion. A bivalve speculum was placed in the patient's vagina and a single- tooth tenaculum placed on the anterior lip of the cervix. The uterus was sounded with the uterine sound. A [employer] uterine manipulator was placed in the bivalve speculum was then removed. Attention was then turned to the patient's abdomen where a millimeter supra umbilical skin incision was then made. A Veress needle was placed and peritoneal entry was verified water-filled syringe. Insufflation of the peritoneal cavity was performed with CO2 gas. The 12 mm trocar was then placed under direct visualization. An additional 8 mm trocar was placed on the patient's left and right lateral side just opposite of the supraumbilical trocar. An additional 8 mm right lateral trocar was then placed as the accessory port. The supraumbilical 12 mm trocar site was closed with the Justin Jiménez device and 0-vicryl suture. The patient was then placed in steep Trendelenburg. The da Aliyah robot was then engaged. A fenestrated forcep was placed in arm 2 and a vessel sealer was placed in arm 1. General survey of the abdomen and pelvis revealed extensive adhesions with multiple omental adhesions to the anterior abdominal wall. The vesicouterine peritoneum was densely adherent anteriorly to the lower uterine segment of the uterus. There were multiple adhesions to the uterus. The surgeon then transferred to the surgical console. Monopolar scissors were used in order to lyse the omental adhesions. A LigaSure device was also used in order to coagulate and lyse the adhesions to improve visualization. The mesosalpinx was then isolated on the right. The vessel sealer was used to coagulate the mesosalpinx which was then transected. The tube was transected from the ovary. The tubo-ovarian ligament was then coagulated and transected. The round ligament was then coagulated and transected also. The vesicouterine peritoneum was then entered from the patient's right side. The uterine vessels were then coagulated with the vessel sealer. The vessels were then transected . Attention was then turned to the patient's left side where the tubo-ovarian ligament and mesosalpinx were again isolated coagulated and transected. Extensive lysis of adhesions had to be performed in order to dissect the bladder off of the lower uterine segment. The vesical peritoneum was then entered from the left and joined in the midline. Peritoneum was reflected off of the lower uterine segment. Uterine vessels were then coagulated and then transected. The blood supply to the uterus was adequately contained, a posterior colpotomy was made. The V care ring was visualized. Posterior colpotomy was created with the monopolar scissors. The incision was continued circumferentially until anterior colpotomy was made. The cervix and uterus were amputated from the vaginal cuff. It was noted at this time there was findings of incidental cystotomy to the dome of the bladder. The uterus was then removed along with the tubes bilaterally through the vagina and a warm laparotomy sponge was placed and maintain the pneumoperitoneum. The vaginal cuff was then closed in a running fashion with V lock suture. Irrigation of the pelvis was performed. 3-0 Vicryl was used to repair the cystotomy. An imbricating stitch was also used with 3-0 Vicryl. The bladder was insufflated with normal saline and there was no evidence of leakage from the cystotomy repair. Hemoblast was applied to the incision. The skin was then reapproximated with 4-0 Monocryl. The tissue was sent to pathology which included the cervix, bilateral tubes and uterus. The patient was then successfully extubated. She was then taken to the recovery room in stable condition. All sponge laps and needle counts were correct x2.
[~2019-08-13 15:23] MED LIST changes: +ACETAMINOPHEN 325 MG TAB PO PRN; +ACETAMINOPHEN 500 MG TAB PO ONE; +BUPIVACAINE-EPINEPHRINE/PF 0.25%-1:200,000 (30 ML) VIAL INFILTRATI ONE; +CELECOXIB 200 MG CAP PO NR; +D5W/LACTATED RINGERS 1,000 ML IV SCH; +GABAPENTIN 300 MG CAP PO NR; +GLYCOPYRROLATE 0.4 MG/2 ML INJ ONE; +HYDROmorphone 1 MG/1 ML INJ ONE; +LACTATED RINGERS 1,000 ML IV SCH; +LIDOCAINE MPF (2%) 20 MG/1 ML VIAL 5 ML ONE; +MAGNESIUM OXIDE 400 MG TAB PO ONE; +NEOMY 40 MG/POLYMYXIN B 200,000 UNITS/ML (GU) AMPULE IR ONE; +NEOSTIGMINE 10MG/10 ML INJ MDV ONE; +ONDANSETRON 4 MG ODT TAB PO PRN; +ONDANSETRON 4 MG/2 ML INJ ONE; +ROCURONIUM 50 MG/5 ML INJ IV ONE; +SCOPOLAMINE TRANSDERMAL PATCH 72 HR TD NR; +SCOPOLAMINE TRANSDERMAL PATCH 72 HR TD ONE; +SODIUM CHLORIDE 0.9% IRR 1,500 ML BOTTLE IR ONE; +SODIUM CHLORIDE 0.9% IRRIG SOLN 2000 ML IR ONE; +SUCCINYLCHOLINE CHLORIDE 200 MG/10 ML INJ MDV ONE; +ZOLPIDEM 5 MG TAB PO PRN; -ceFAZolin 2 GM in NACL 0.9% 100 ML IV ONE; +ceFAZolin/Water 2 GM/20 ML 2 GM/20 ML SYRINGE IV NR; +dexAMETHasone 20 MG/5 ML VIAL ONE; +fentaNYL 100 MCG/2 ML INJ IV ONE; +oxyCODONE /ACETAMINOPHEN 5-325MG TAB PO PRN; +propofoL 200 MG/20 ML VIAL IV ONE
[2019-08-13] MEDS ORDERED: HYDROmorphone 1 MG/1 ML INJ ONE (15:52)
[2019-08-13] MEDS ORDERED: hydrALAZINE 20 MG/1 ML INJ ONE (15:52)
[2019-08-13] MEDS ORDERED: KETOROLAC 30 MG/1 ML INJ ONE (15:53)
[2019-08-13] MEDS: hydrALAZINE 20 MG/1 ML INJ IV PRN ×2 (15:55→16:24)
[2019-08-13] MEDS: HYDROmorphone 1 MG/1 ML INJ IV PRN ×2 (15:58→16:08)
[2019-08-13] MEDS: KETOROLAC 30 MG/1 ML INJ IV SCH (15:59)
[2019-08-13] MEDS: IBUPROFEN 600 MG TAB PO SCH (18:50)
[2019-08-13] MEDS ORDERED: hydrALAZINE 20 MG/1 ML INJ IV PRN (19:53)
[2019-08-13] MEDS: PHENAZOPYRIDINE 100 MG TAB PO SCH (22:33)
[2019-08-14] MEDS: KETOROLAC 30 MG/1 ML INJ IV SCH ×2 (00:15→08:30)
[2019-08-14] MEDS: MORPHINE 4 MG/1 ML INJ IV PRN ×2 (01:49→06:30)
[2019-08-14 06:07] LABS: Hematocrit 29.6 % (30.3-42.9); Hemoglobin 9.4 gm/dl (10.1-14.3)
[2019-08-14] MEDS: PHENAZOPYRIDINE 100 MG TAB PO SCH (06:25)
--- NOTE | 2019-08-14 09:17 | Progress Note ---
Assessment and Plan - Patient Problems (1) Pelvic adhesive disease Current Visit: No Status: Acute Plan to address problem: Advance diet as tolerated Discharge home today (2) Chronic pelvic pain in female Current Visit: No Status: Acute Subjective - Subjective Date of service: 08/14/19 Interval history: Discussed the findings of the surgery with the patient. She reports having lower abdominal cramping. She denies any nausea vomiting. The patient was made aware that she will need to retain her Christy catheter for the next 10 days. Patient reports: appetite normal Objective - Vital Signs Latest vital signs: Vital Signs Temp Pulse Resp BP BP Pulse Ox 08/14/19 04:10 99.1 F 102 H 20 148/86 100 08/14/19 01:57 167/89 08/14/19 00:14 99.1 F 98 H 20 163/92 100 08/13/19 22:35 101 H 151/89 08/13/19 22:32 101 H 151/89 08/13/19 21:36 99 H 158/89 08/13/19 20:55 100 H 156/88 08/13/19 20:40 103 H 162/89 08/13/19 20:25 106 H 151/91 08/13/19 20:20 103 H 160/90 08/13/19 20:15 99 H 21 161/93 08/13/19 20:10 90 185/109 08/13/19 17:30 98.5 F 81 12 166/87 100 08/13/19 17:26 81 166/87 100 08/13/19 17:00 98.0 F 90 15 154/82 99 08/13/19 16:45 80 15 156/74 99 08/13/19 16:38 13 08/13/19 16:30 80 13 154/75 100 08/13/19 16:29 13 08/13/19 16:28 13 08/13/19 16:25 70 13 156/81 100 08/13/19 16:24 70 185/103 08/13/19 16:20 72 13 152/65 100 08/13/19 16:15 98.2 F 68 12 185/108 100 05 16:10 69 13 188/108 100 08/13/19 16:08 13 08/13/19 16:05 66 13 205/113 100 05/20/20 16:00 66 15 201/105 100 05/20/20 15:59 13 05/20/20 15:58 13 05/20/20 15:55 70 12 189/107 100 05/20/20 15:50 63 13 198/114 99 05/20/20 15:45 64 12 188/105 99 05/20/20 15:40 62 13 190/115 100 05/20/20 15:35 63 13 186/108 100 05/20/20 15:30 64 12 193/107 100 05/2020 15:27 64 198/114 05/20/20 15:25 70 12 195/103 100 05/20/20 15:20 73 12 200/108 100 05/20/20 15:15 97.1 F L 74 13 192/108 100 0520 11:40 74 16 146/83 100 05/20/20 11:15 70 16 156/76 100 05/20/20 10:45 84 16 142/75 100 05/2020 10:30 72 18 138/73 100 05/2020 10:25 78 18 155/82 100 05/20/20 10:20 75 16 162/76 100 05/20/20 10:15 78 16 196/111 100 05/20/20 10:10 70 12 144/85 100 05/20/20 10:05 82 14 145/87 100 05/20/20 10:00 72 14 171/97 100 05/20 09:58 84 14 158/97 100 Intake and Output 08/13/19 05/20 0520 22:59 06:59 14:59 Intake Total 250 120 Output Total 1250 1000 Balance -1000 -880 Intake: IV 250 Oral 120 Output: Urine 1250 1000 Indwelling Catheter 500 1000 Other: Total, Intake Amount 120 Total, Output Amount 500 800 Voiding Method Indwelling Catheter - Exam Breasts: Present: deferred Abdomen: Present: normal appearance, soft - Labs Labs: Abnormal lab results 08/14/19 Range/Units 05:23 Hgb 9.4 L (10.1-14.3) gm/dl Hct 29.6 L (30.3-42.9) %
--- NOTE | 2019-08-14 09:21 | Discharge Summary ---
Providers - Providers Date of Admission: 08/13/19 15:24 Date of discharge: 08/14/19 Attending physician: CAROLINA VALENZUELA Primary care physician: DEEDEE KELLY Hospitalization Reason for admission: other (Chronic pelvic pain) Procedure: other (Robotic hysterectomy) complications: other (Incidental cystotomy) Discharge diagnosis: other (Chronic pelvic pain) Hospital course: The patient was admitted the day of surgery and underwent a robotic hysterectomy and bilateral salpingectomy. Please see operative note for details of surgery. Her intraoperative course is complicated by incidental cystotomy secondary to extensive pelvic adhesive disease. Cystotomy repair was performed. The patient was discharged home with a Christy in place. Condition at discharge: Good Disposition: DC-01 TO HOME OR SELFCARE - Discharge Diagnoses (1) Pelvic adhesive disease Status: Acute (2) Chronic pelvic pain in female Status: Acute Plan - Discharge Medications Prescriptions: Docusate Sodium [Colace] 100 mg PO BID PRN #60 capsule PRN Reason: Constipation Nitrofurantoin [place]/M-Cryst [Macrobid CAP] 100 mg PO Q12HR #20 capsule Ibuprofen [Motrin] 800 mg PO Q8HR PRN #60 tablet PRN Reason: Pain, Mild (1-3) Oxycodone HCl/Acetaminophen [Percocet 10/325 mg] 1 each PO Q6HR PRN #30 tablet PRN Reason: Pain Phenazopyridine [Pyridium] 200 mg PO BID #10 tab - Provider Discharge Summary Activity: no sex for 6 weeks, no heavy lifting 4 weeks, no strenuous exercise Diet: routine Instructions: routine Additional instructions: [] Smoking cessation referral if applicable(refer to patient education folder for contact #) [] Refer to [facility] Booklet Call your doctor immediately for: * Fever > 100.5 * Heavy vaginal bleeding ( >1 pad per hour) * Severe persistent headache * Shortness of breath * Reddened, hot, painful area to leg or breast * Drainage or odor from incision. * Keep incision clean and dry at all times and follow doctor's instructions regarding bathing/showering Schedule follow-up with Dr. Valenzuela in 10 days for removal of Christy - Follow up plan
[2019-08-14] MEDS ORDERED: MAGNESIUM HYDROXIDE (MOM) ORAL LIQD UDC PO PRN (10:00)
[2019-08-14] MEDS: IBUPROFEN 600 MG TAB PO SCH (12:55)
[2019-08-14 16:41] VITALS: BP 116/66
== END 2019-08-14 16:35 | disposition home or self-care (01) ==
LOC: OR 15:23 → OB 15:24
PROVIDERS: ADMIT Obstetrics & Gynecology; ATTEND Obstetrics & Gynecology
DX: N73.6 Female pelvic peritoneal adhesions (postinfective) (principal); N72 Inflammatory disease of cervix uteri; N83.201 Unspecified ovarian cyst, right side
CPT/HCPCS: 36415; 51520; 58552; 64450; 84703; 85014; 85018; 85025; 86850; 86900; 86901; 88307; 93005; 96374; 96375; 96376; A4217; G0378; J0330; J0360; J0690; J1100; J1170; J1885; J2250; J2270; J2405; J2704; J2710; J3010; J7120; J7121; S2900; 88302; Q0162

== ENCOUNTER 2020-05-02 08:38 | Emergency (ER) | payer MEDICAID ==
--- NOTE | 2020-05-02 09:00 | Event Note ---
ED Screening Note Date of service: 05/02/20 Time: 08:57 ED Screening Note: 34-year-old -[place] female presents to the emergency room complaining of left lower quadrant abdominal pain and left lower back pain for 5 days. Patient states that she has been taking antibiotics that was called in by her provider but does not seem to be helping. Patient does endorse that she has 1 kidney. Patient does have a history of high blood pressure but currently is not being treated. Admits to nausea no vomiting no headache. This initial assessment/diagnostic orders/clinical plan/treatment(s) is/are subject to change based on patients health status, clinical progression and re- assessment by fellow clinical providers in the ED. Further treatment and workup at subsequent clinical providers discretion. Patient/guardian urged not to elope from the ED as their condition may be serious if not clinically assessed and managed. Initial orders include:
[2020-05-02 10:47] LABS: Basophils # (Auto) 0.1 K/mm3 (0.0-0.1); Basophils % (Auto) 0.7 % (0.0-1.8); Eosinophils # (Auto) 0.1 K/mm3 (0.0-0.4); Eosinophils % (Auto) 1.6 % (0.0-4.3); Hematocrit 41.3 % (30.3-42.9); Hemoglobin 13.7 gm/dl (10.1-14.3); Lymphocytes # (Auto) 2.2 K/mm3 (1.2-5.4); Lymphocytes % (Auto) 28.3 % (13.4-35.0); Mean Corpuscular HGB Conc 33 % (30-34); Mean Corpuscular Volume 90 fl (79-97); Monocytes # (Auto) 0.5 K/mm3 (0.0-0.8); Monocytes % (Auto) 6.3 % (0.0-7.3); Platelet Count 294 K/mm3 (140-440); Red Blood Count 4.61 M/mm3 (3.65-5.03)
[2020-05-02 10:59] LABS: Alanine Aminotransferase 14 units/L (7-56); Albumin 4.4 g/dL (3.9-5); Blood Urea Nitrogen 7 mg/dL (7-17); Calcium 9.9 mg/dL (8.4-10.2); Hemolysis Index 2
[2020-05-02 11:06] LABS: BUN/Creatinine Ratio 10
[2020-05-02] MEDS ORDERED: KETOROLAC 60 MG/2 ML INJ IM ONE (12:29)
[2020-05-02 13:00] LABS: Bacteria,Urine 1+ /HPF (Negative); Bilirubin,Urine NEG (Negative); Blood,Urine NEG (Negative); Color,Urine Yellow (Yellow); Mucus,Urine FEW /HPF; Protein,Urine <15 mg/dL mg/dL (Negative); Urobilinogen,Urine < 2.0 mg/dL (<2.0)
[2020-05-02 13:01] LABS: HCG Qualitative,Urine Negative (Negative)
--- NOTE | 2020-05-02 13:43 | Cat Scan Report ---
CT ABDOMEN AND PELVIS WITHOUT CONTRAST INDICATION / CLINICAL INFORMATION: left flank pain. TECHNIQUE: Axial CT images were obtained through the abdomen and pelvis without IV contrast. All CT scans at [facility] location are performed using CT dose reduction for ALARA by means of automated exposure control. COMPARISON: None available. FINDINGS: LOWER CHEST: No significant abnormality. LIVER: No significant abnormality. GALLBLADDER: No significant abnormality. BILE DUCTS: No significant abnormality. PANCREAS: No significant abnormality. SPLEEN: No significant abnormality. ADRENALS: No significant abnormality. RIGHT KIDNEY and URETER: Tiny calculi. No hydronephrosis.. LEFT KIDNEY and URETER: Severely atrophic. STOMACH and SMALL BOWEL: No significant abnormality. COLON: No significant abnormality. APPENDIX: No significant abnormality. PERITONEUM: No free fluid. No free air. No fluid collection. LYMPH NODES: No significant adenopathy. AORTA and ARTERIES: No significant abnormality. IVC and VEINS: No significant abnormality. URINARY BLADDER: No significant abnormality. REPRODUCTIVE ORGANS: No significant abnormality. ADDITIONAL FINDINGS: Prior ventral abdominal wall hernia repair.. SKELETAL SYSTEM: No significant abnormality. IMPRESSION: Severe atrophy of the left kidney without evidence of hydronephrosis. Nonobstructive right-sided neph rolithiasis. Signer Name: Mike Lynn MD Signed: 05/02/2020 1:39 PM Workstation Name: [id number]
--- NOTE | 2020-05-02 14:03 | Emergency Department Report ---
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 Patient states she has some mild urinary frequency and dysuria approximately 5 days ago. She was placed on Bactrim by her DIRECTOR OF [employer]CILLARY SERVICES. States her pain is not improved. She is no longer having the dysuria but she has flank pain on the left side. She denies nausea vomiting fevers chills cough cold congestion at this time. Patient's pain is estimated 6 out of 10. Severity scale (0 -10): 9 - Related Data Home Medications Medication Instructions Recorded Confirmed Last Taken Ibuprofen [Motrin] 800 mg PO Q8HR PRN 08/07/19 08/13/19 08/12/19 Previous Rx's Medication Instructions Recorded Last Taken Type oxyCODONE /ACETAMINOPHEN [Percocet 1 tab PO Q4HR PRN #30 tab 05/23/18 08/13/19 06:30 Rx 5/325] Docusate Sodium [Colace] 100 mg PO BID PRN #60 capsule 08/14/19 Unknown Rx Ibuprofen [Motrin] 800 mg PO Q8HR PRN #60 tablet 08/14/19 Unknown Rx Nitrofurantoin Coles/M-Cryst 100 mg PO Q12HR #20 capsule 08/14/19 Unknown Rx [Macrobid CAP] Oxycodone HCl/Acetaminophen 1 each PO Q6HR PRN #30 tablet 08/14/19 Unknown Rx [Percocet 10/325 mg] Phenazopyridine [Pyridium] 200 mg PO BID #10 tab 08/14/19 Unknown Rx Phenazopyridine [Pyridium] 200 mg PO BID #6 tab 05/02/20 Unknown Rx Sulfamethoxazole/Trimethoprim 1 each PO BID #10 tablet 05/02/20 Unknown Rx [Bactrim DS TAB] traMADoL [Ultram] 50 mg PO Q6HR PRN #12 tablet 05/02/20 Unknown Rx Allergies Allergy/AdvReac Type Severity Reaction Status Date / Time No Known Allergies Allergy Verified 08/07/19 15:20 ED Review of Systems ROS: Stated complaint: kidney pains Other details as noted in HPI Comment: All other systems reviewed and negative ED Past Medical Hx - Past Medical History Previous Medical History?: Yes Hx Hypertension: Yes (no antihypertensives today) Hx Heart Attack/AMI: No Hx Liver Disease: No Hx Renal Disease: (born with one kidney) Hx Headaches / Migraines: Yes (MIGRAINES) Hx Seizures: No Hx Asthma: No Hx COPD: No Hx HIV: No Additional medical history: UTI'S, One kidney - Social History Smoking Status: Never Smoker - Medications Home Medications: Home Medications Medication Instructions Recorded Confirmed Last Taken Type oxyCODONE /ACETAMINOPHEN [Percocet 1 tab PO Q4HR PRN #30 tab 05/23/18 08/13/19 08/13/19 06:30 Rx 5/325] Ibuprofen [Motrin] 800 mg PO Q8HR PRN 08/07/19 08/13/19 08/12/19 History Docusate Sodium [Colace] 100 mg PO BID PRN #60 capsule 08/14/19 Unknown Rx Ibuprofen [Motrin] 800 mg PO Q8HR PRN #60 tablet 08/14/19 Unknown Rx Nitrofurantoin Coles/M-Cryst 100 mg PO Q12HR #20 capsule 08/14/19 Unknown Rx [Macrobid CAP] Oxycodone HCl/Acetaminophen 1 each PO Q6HR PRN #30 tablet 08/14/19 Unknown Rx [Percocet 10/325 mg] Phenazopyridine [Pyridium] 200 mg PO BID #10 tab 08/14/19 Unknown Rx Phenazopyridine [Pyridium] 200 mg PO BID #6 tab 05/02/20 Unknown Rx Sulfamethoxazole/Trimethoprim 1 each PO BID #10 tablet 05/02/20 Unknown Rx [Bactrim DS TAB] traMADoL [Ultram] 50 mg PO Q6HR PRN #12 tablet 05/02/20 Unknown Rx ED Physical Exam - General Limitations: No Limitations General appearance: alert, in no apparent distress - Head Head exam: Present: atraumatic, normocephalic - Eye Eye exam: Present: normal appearance - ENT ENT exam: Present: mucous membranes moist - Neck Neck exam: Present: normal inspection - Respiratory Respiratory exam: Present: normal lung sounds bilaterally. Absent: respiratory distress, wheezes, rales, rhonchi - Cardiovascular Cardiovascular Exam: Present: regular rate, normal rhythm, normal heart sounds. Absent: systolic murmur, diastolic murmur, rubs, gallop - GI/Abdominal GI/Abdominal exam: Present: soft, tenderness (Suprapubic and left flank), normal bowel sounds. Absent: distended, guarding, rebound - Extremities Exam Extremities exam: Present: normal inspection - Back Exam Back exam: Present: normal inspection - Neurological Exam Neurological exam: Present: alert, oriented X3 - Psychiatric Psychiatric exam: Present: normal affect, normal mood - Skin Skin exam: Present: warm, dry, intact, normal color. Absent: rash ED Course Vital Signs 05/02/20 08:49 Temperature 98.5 F Pulse Rate 100 H Respiratory 18 Rate Blood Pressure 178/124 O2 Sat by Pulse 96 Oximetry ED Medical Decision Making - Lab Data Result diagrams: 05/02/20 09:55 05/02/20 09:55 Lab Results 05/02/20 05/02/20 05/02/20 Range/Units 09:55 09:55 12:30 WBC 7.7 (4.5-11.0) K/mm3 RBC 4.61 (3.65-5.03) M/mm3 Hgb 13.7 (10.1-14.3) gm/dl Hct 41.3 (30.3-42.9) % MCV 90 (79-97) fl MCH 30 (28-32) pg MCHC 33 (30-34) % RDW 15.0 (13.2-15.2) % Plt Count 294 (140-440) K/mm3 Lymph % (Auto) 28.3 (13.4-35.0) % Coles % (Auto) 6.3 (0.0-7.3) % Eos % (Auto) 1.6 (0.0-4.3) % Baso % (Auto) 0.7 (0.0-1.8) % Lymph # (Auto) 2.2 (1.2-5.4) K/mm3 Coles # (Auto) 0.5 (0.0-0.8) K/mm3 Eos # (Auto) 0.1 (0.0-0.4) K/mm3 Baso # (Auto) 0.1 (0.0-0.1) K/mm3 Seg Neutrophils % 63.1 (40.0-70.0) % Seg Neutrophils # 4.8 (1.8-7.7) K/mm3 Sodium 135 L (137-145) mmol/L Potassium 5.4 H (3.6-5.0) mmol/L Chloride 101.2 (98-107) mmol/L Carbon Dioxide 27 (22-30) mmol/L Anion Gap 12 mmol/L BUN 7 (7-17) mg/dL Creatinine 0.7 (0.6-1.2) mg/dL Estimated GFR > 60 ml/min BUN/Creatinine Ratio 10 % Glucose 88 (65-100) mg/dL Calcium 9.9 (8.4-10.2) mg/dL Total Bilirubin < 0.20 (0.1-1.2) mg/dL AST 20 (5-40) units/L ALT 14 (7-56) units/L Alkaline Phosphatase 68 (35-129) units/L Total Protein 7.9 (6.3-8.2) g/dL Albumin 4.4 (3.9-5) g/dL Albumin/Globulin Ratio 1.3 % Urine Color Yellow (Yellow) Urine Turbidity Slightly-cloudy (Clear) Urine pH 5.0 (5.0-7.0) Ur Specific [place] 1.023 (1.003-1.030) Urine Protein <15 mg/dl (Negative) mg/dL Urine Glucose (UA) Neg (Negative) mg/dL Urine Ketones Neg (Negative) mg/dL Urine Blood Neg (Negative) Urine Nitrite Neg (Negative) Urine Bilirubin Neg (Negative) Urine Urobilinogen < 2.0 (<2.0) mg/dL Ur Leukocyte Esterase Neg (Negative) Urine WBC (Auto) 1.0 (0.0-6.0) /HPF Urine RBC (Auto) 1.0 (0.0-6.0) /HPF U Epithel Cells (Auto) 10.0 (0-13.0) /HPF Urine Bacteria (Auto) 1+ (Negative) /HPF Urine Mucus Few /HPF Urine HCG, Qual (Negative) 05/02/20 Range/Units 12:30 WBC (4.5-11.0) K/mm3 RBC (3.65-5.03) M/mm3 Hgb (10.1-14.3) gm/dl Hct (30.3-42.9) % MCV (79-97) fl MCH (28-32) pg MCHC (30-34) % RDW (13.2-15.2) % Plt Count (140-440) K/mm3 Lymph % (Auto) (13.4-35.0) % Coles % (Auto) (0.0-7.3) % Eos % (Auto) (0.0-4.3) % Baso % (Auto) (0.0-1.8) % Lymph # (Auto) (1.2-5.4) K/mm3 Coles # (Auto) (0.0-0.8) K/mm3 Eos # (Auto) (0.0-0.4) K/mm3 Baso # (Auto) (0.0-0.1) K/mm3 Seg Neutrophils % (40.0-70.0) % Seg Neutrophils # (1.8-7.7) K/mm3 Sodium (137-145) mmol/L Potassium (3.6-5.0) mmol/L Chloride (98-107) mmol/L Carbon Dioxide (22-30) mmol/L Anion Gap mmol/L BUN (7-17) mg/dL Creatinine (0.6-1.2) mg/dL Estimated GFR ml/min BUN/Creatinine Ratio % Glucose (65-100) mg/dL Calcium (8.4-10.2) mg/dL Total Bilirubin (0.1-1.2) mg/dL AST (5-40) units/L ALT (7-56) units/L Alkaline Phosphatase (35-129) units/L Total Protein (6.3-8.2) g/dL Albumin (3.9-5) g/dL Albumin/Globulin Ratio % Urine Color (Yellow) Urine Turbidity (Clear) Urine pH (5.0-7.0) Ur Specific [place] (1.003-1.030) Urine Protein (Negative) mg/dL Urine Glucose (UA) (Negative) mg/dL Urine Ketones (Negative) mg/dL Urine Blood (Negative) Urine Nitrite (Negative) Urine Bilirubin (Negative) Urine Urobilinogen (<2.0) mg/dL Ur Leukocyte Esterase (Negative) Urine WBC (Auto) (0.0-6.0) /HPF Urine RBC (Auto) (0.0-6.0) /HPF U Epithel Cells (Auto) (0-13.0) /HPF Urine Bacteria (Auto) (Negative) /HPF Urine Mucus /HPF Urine HCG, Qual Negative (Negative) K elevation from slight hemolysis - Radiology Data [facility] [address] [place] [address] Cat Scan Report Signed Patient: CHUCK KOWALSKI MR#: [id number] 5 : 1985 Acct:[id number] Age/Sex: 34 / F ADM Date: 05/02/20 Loc: ED Attending Dr: Ordering Physician: APRIL KELLY MD Date of Service: 05/02/20 Procedure(s): CT abdomen pelvis wo con Accession Number(s): [id number] cc: APRIL KELLY MD CT ABDOMEN AND PELVIS WITHOUT CONTRAST INDICATION / CLINICAL INFORMATION: left flank pain. TECHNIQUE: Axial CT images were obtained through the abdomen and pelvis without IV co ntrast. All CT scans at this location are performed using CT dose reduction for ALARA by means of automated exposure control. COMPARISON: None available. FINDINGS: LOWER CHEST: No significant abnormality. LIVER: No significant abnormality. GALLBLADDER: No significant abnormality. BILE DUCTS: No significant abnormality. PANCREAS: No significant abnormality. SPLEEN: No significant abnormality. ADRENALS: No significant abnormality. RIGHT KIDNEY and URETER: Tiny calculi. No hydronephrosis.. LEFT KIDNEY and URETER: Severely atrophic. STOMACH and SMALL BOWEL: No significant abnormality. COLON: No significant abnormality. APPENDIX: No significant abnormality. PERITONEUM: No free fluid. No free air. No fluid collection. LYMPH NODES: No significant adenopathy. AORTA and ARTERIES: No significant abnormality. IVC and VEINS: No significant abnormality. URINARY BLADDER: No significant abnormality. REPRODUCTIVE ORGANS: No significant abnormality. ADDITIONAL FINDINGS: Prior ventral abdominal wall hernia repair.. SKELETAL SYSTEM: No significant abnormality. IMPRESSION: Severe atrophy of the left kidney without evidence of hydronephrosis. Nonobstructive right-sided nephrolithiasis. Signer Name: Mike Lynn MD Signed: 05/02/2020 1:39 PM Workstation Name: [id number] - Medical Decision Making Patient was actually mistaken about being born without a right-sided kidney. The right kidney is normal in size. She does have some atrophy to the left kidney. Patient urinalysis does show she has small amount of bacteria in the urine but her leuk esterase and nitrites are negative. Likely that she does have urinary tract infection which is being treated by the antibiotics with some flank pain secondary to the atrophy and dysfunctional collecting system on the left. Patient is has not seen urologist in approximately 11 to 12 years. Patient states she is taken all of the antibiotics that were given as it was a 5-day course. Because the patient is still having pain will extend the antibiotic course another 5 days. Patient be given medication for symptomatic relief. Patient also will be given urology for follow-up. Critical care attestation.: If time is entered above; I have spent that time in minutes in the direct care of this critically ill patient, excluding procedure time. ED Disposition Clinical Impression: Acute cystitis Qualifiers: Hematuria presence: without hematuria Qualified Code(s): N30.00 - Acute cystitis without hematuria Disposition: TO HOME OR SELFCARE Is pt being admited?: No Does the pt Need Aspirin: No Condition: Stable Instructions: Abdominal Pain (ED), Urinary Tract Infection, Adult Referrals: MIKAL AMBRIZ MD [Staff Physician] - 3-5 Days Time of Disposition: 14:09
[2020-05-02 14:45] VITALS: BP 161/106
== END 2020-05-02 14:45 | disposition home or self-care (01) ==
LOC: ED 08:38
DX: N30.00 Acute cystitis without hematuria (principal); I10 Essential (primary) hypertension; G43.909 Migraine, unspecified, not intractable, without status migrainosus; Z79.1 Long term (current) use of non-steroidal anti-inflammatories (NSAID); Z79.899 Other long term (current) drug therapy
CPT/HCPCS: 36415; 74176; 80053; 81001; 81025; 85025; 96372; 99284; J1885